=== PATIENT | male | born 1975 | race Two or more races ===

== ENCOUNTER 2020-07-12 14:30 | Outpatient (CLI) | payer OTHER, BC | END 2020-07-12 14:40 | disposition home or self-care (01) | LOC: RAD 14:30 | PROVIDERS: ATTEND Chiropractor | DX: M99.01 Segmental and somatic dysfunction of cervical region (principal); M99.02 Segmental and somatic dysfunction of thoracic region; M99.03 Segmental and somatic dysfunction of lumbar region ==

== ENCOUNTER 2025-06-30 00:15 | Emergency (ER) | payer BC ==
[~2025-06-30] VITALS: Ht 180.3 cm; Wt 108.9 kg
[2025-06-30] MEDS ORDERED: NIFEDIPINE20 MG (00:26)
[2025-06-30] MEDS ORDERED: ANASTROZOLE1 MG PO (00:26)
[2025-06-30] MEDS ORDERED: TESTIM5 GM IM (00:27)
[2025-06-30] MEDS ORDERED: METRONIDAZOLE/SODIUM CHLORIDE 500 MG/100 ML PIGGYBACK IV STA (01:21)
[2025-06-30] MEDS ORDERED: CIPROFLOXACIN IN 5 % DEXTROSE 400 MG/200 ML PIGGYBAG IV STA (01:21)
[2025-06-30] MEDS ORDERED: 0.9 % SODIUM CHLORIDE 1,000 ML IV ONE (01:30)
[2025-06-30 01:48] LABS: URINE APPEARANCE Clear; URINE BILIRRUBIN Negative (NEGATIVE); URINE BLOOD NHT; URINE COLOR Yellow; URINE GLUCOSE Negative (NEGATIVE); URINE KETONE Negative (NEGATIVE); URINE LEUKOCYTE Negative; URINE NITRATE Negative; URINE PROTEIN Negative (NEGATIVE); URINE UROBILINOGEN 0.2 E.U./dl
[2025-06-30 01:51] LABS: URINE BACTERIA 5.9 uL (0.0-1933); URINE RBC 14.2 uL (0.0-20.8); URINE WBC 1.8 uL (0.0-23.2)
[2025-06-30 01:54] LABS: URINE CAST 0.00 uL (0.0-1.40); URINE EPITHELIAL CELLS 0.7 uL (0.0-38.8)
[2025-06-30 01:54] LABS: BASO % 0.9 % (0.1-1.2); EOS # 0.13 (0.04-0.54); EOS % 1.1 % (0.7-7.0); LYMPH # 2.22 (1.18-3.74); LYMPH % 18.7 % (19.3-53.1); MEAN PLATELET VOLUME 10.10 fl (9.4-12.4); MONO # 1.27 (0.24-0.82); MONO % 10.7 % (4.7-12.5); NEUT # 8.13 (1.56-6.13); NEUT % 68.3 % (34.0-71.1); RED CELL DISTRIBUTION WIDTH 14.9 % (11.6-14.4)
[2025-06-30 02:07] LABS: INR 1.08
[2025-06-30 02:21] LABS: ALT/SGPT 49.0 U/L (12-78); AST/SGOT 32.0 U/L (15-37); BILIRUBIN TOTAL 0.3 mg/dL (0.3-1.2); BUN CREA RATIO 15.0 (7.0-25.0); CREATININE SERUM 1.27 mg/dL (0.70-1.30); GLOBULINA 3.5 G/DL (2.4-3.5); GLUCOSE FASTING 121.0 mg/dL (65-100); OSMOLALITY SERUM 288.0 MOSM/KG (275-295)
[2025-06-30 02:38] LABS: GFR 59.79
[2025-06-30] MEDS ORDERED: PEPCID AC20 MG PO (09:39)
[2025-06-30] MEDS ORDERED: PROBIOTIC1 EAC2 PO (09:39)
[2025-06-30] MEDS ORDERED: CIPRO500 MG PO (09:39)
[2025-06-30] MEDS ORDERED: METRONIDAZOLE500 MG PO (09:39)
== END 2025-06-30 09:57 | disposition home or self-care (01) ==
LOC: ER 00:15
PROVIDERS: General Practice
DX: R10.32 Left lower quadrant pain (principal); K57.32 Diverticulitis of large intestine without perforation or abscess without bleeding; I10 Essential (primary) hypertension